=== PATIENT | female | born 1995 | race Caucasian/White ===

== ENCOUNTER 2023-02-14 12:21 | Emergency (ER) | payer SELFPAY ==
[~2023-02-14] VITALS: Ht 162.6 cm; Wt 125.0 kg
[2023-02-14 12:47] VITALS: BP 138/90; PULSE 120; RESP 20; TEMP 98; O2SAT 98
== END 2023-02-14 16:11 | disposition home or self-care (01) ==
LOC: EDSEX → ER 12:21
DX: F19.10 Other psychoactive substance abuse, uncomplicated (principal)
CPT/HCPCS: 99284

== ENCOUNTER 2023-02-15 03:11 | Emergency (ER) | payer OTHER ==
[~2023-02-15] VITALS: Ht 162.6 cm; Wt 46.2 kg
[2023-02-15 03:26] VITALS: BP 148/84; PULSE 58; RESP 16; TEMP 98.7; O2SAT 98
== END 2023-02-15 03:59 | disposition home or self-care (01) ==
LOC: ER 03:11 → EDSEX 03:11 → ER 03:59
DX: Z00.00 Encounter for general adult medical examination without abnormal findings (principal)
CPT/HCPCS: 99281